=== PATIENT | male | born 1955 | race Caucasian/White ===

== ENCOUNTER 2020-04-29 20:58 | Inpatient (IN) | payer OTHER ==
[~2020-04-29] VITALS: Ht 190.5 cm; Wt 111.2 kg
--- NOTE | 2020-04-29 20:49 | NUR ---
RODRIGO IS A DIRECT ADMIT FROM THE [place]. ARRIVED TO THE FLOOR VIA GURNEY/AMBULANCE. HE IS BEING ADMITTED FOR BILATERAL PNEUMONIA AND COVID-19 POSITIVE. RODRIGO REPORTS THAT HE [place]IVES IN [place] AND GOT TESTED POSITIVE SEVERAL DAYS AGO, SINCE THEN HE HAS BEEN SLEEPING ALL THE TIME, DOES NOT HAVE ANY ENERGY, CHANGE IN TASTE BUDS, SOB JUST STARTED LAST NIGHT, HEADACHE OFF AND ON MILD. DAUGHTER GOT HIM TO COME TO [facility] FOR EVALUATION, SHE WAS VERY CONCERNED THEREFORE [place] WANTED TO ADMIT TO US. RODRIGO IS AOX4, WORKS, IS INDEPENDENT. WELL GROOMED. DOES NOT APPEAR IN ANY DISTRESS, WEARING A MASK. SPEECH IS NORMAL, CLEAR. NO DIFFICULTY SWALLOWING, MOUTH MOIST MEMBRANES, TONSILS NORMAL SIZE. EYES NORMAL APPEARING, PUPILS REACTIVE SIZE 4, REPORTS SINUS CONGSETION, NO TENDERNESS ALONG SINUS TRACK, NO HEARING ISSUES, EARS ARE FREE OF FLUID, LUNG SOUNDS CLEAR IN UPPER LOBES, BASES DIMINISHED, COUGH IS MOIST OCCATIONAL AND PRODUCTIVE OF SMALL BROWN SPUTUM, SATS 96% ON RA, RESP EVEN AND UNLABORED. HR SINUS, NO MURMUR OR GALLOP. ABD ROUND, MILD DISTENTION, STATES IS HIS NORM, NONTENDER, BM TODAY, BT ACTIVE X4, NO NAUSEA. GOOD URINE OUTPUT PER PATIENT, YELLOW, DENIES ODOR OR BURNING. SKIN PWD, NO BRUISING OR RASHES. DR. DAHL IN ROOM TO ASSESS PATIENT, SPOKE TO DAUGHTER OF PATIENT WELL. HE WILL PLACE ORDERS. CALL LIGHT IS IN REACH, WILL GET HIM SOMETHING TO EAT AND DRINK.
[2020-04-29] MEDS ORDERED: METF500 PO (22:13)
[2020-04-29] MEDS ORDERED: Prinivil10 MG (22:14)
[2020-04-29] MEDS ORDERED: TAMS.4ER PO (22:14)
[2020-04-29] MEDS ORDERED: VITAMIN D32000 UNI1 (22:16)
[2020-04-29] MEDS ORDERED: MULTIPLE VITAM1 EACH (22:17)
[2020-04-30 04:57] LABS: Hematocrit 42.7 % (37.0-53.0); Hemoglobin 14.2 g/dL (13.5-17.5); Mean Corpuscular HGB 29.6 pg (26.0-34.0); Mean Corpuscular HGB Conc 33.3 g/dL (31.5-36.5); Mean Corpuscular Volume 89 fL (80-100); Mean Platelet Volume 10.6 fL (9.1-12.4); Platelet Count 97 K/mm3 (150-400); RDW Coefficient Variation 13.1 % (11.7-14.2); RDW Standard Deviation 42.8 fL (35.1-46.3); White Blood Cell Count 29.42 K/mm3 (4.00-11.30)
[2020-04-30 05:18] LABS: Anion Gap 6 mmol/L (6-16); Blood Urea Nitrogen 17 mg/dL (8-24); Bun/Creatinine Ratio 25.3 (12.0-20.0); CO2, Blood 24 mmol/L (21-32); Calcium, Blood 8.2 mg/dL (8.5-10.1); Chloride, Blood 105 mmol/L (98-108); Creatinine, Blood 0.67 mg/dL (0.60-1.20); Glomerular Filtration Rate >60 (60-); Glucose, Blood 171 mg/dL (70-99); Potassium, Blood 4.4 mmol/L (3.5-5.5); Sodium, Blood 135 mmol/L (136-145)
--- NOTE | 2020-04-30 06:01 | NUR ---
SHIFT SUMMARY: RODRIGO WAS A DIRECT ADMIT FROM THE [place]. DAUGHTER IS A DOCTOR IN [place]. TESTED POSTIVE FOR COVID-19 4 DAYS AGO AN OUTPATIENT. SINCE THEN HE HAS BEEN SLEEPING MORE OFTEN, HAS HAD CHANGE IN TASTE, DECREASE IN APPETITE. AND RUNNING A TEMP. HE FINALLY GOT A CHEST XRAY AT THE [place] WHICH SHOWED BILATERAL INFILTRATES. HE IS ALSO SOB. AOX3, INDEPENDENT IN THE ROOM. LUNG SOUNDS CLEAR WITH TIGHT/DIMINISHED BASES. COUGH PRODUCTIVE WITH BROWN SPUTUM SMALL AMOUNTS. SATS 96% ON RA. ON CONTINUOUS BIOX AND WHEN HE SLEPT HE DID DESAT DOWN TO 88%. FEBRILE AT 101 BUT CAME DOWN TO 98 ON HIS OWN THIS AM. MILD HEADACHES OFF AND ON, OCCATIONAL DIZZINESS. SLEPT OFF AND ON. ISOLATION DROPLET/CONTACT IN PLACE. CALL LIGHT IN REACH.
--- NOTE | 2020-04-30 18:24 | NUR ---
SHIFT SUMMARY- PT IS A/O, PLESANT AND COOPERATIVE. HE TOOK A SHOWER THIS SHIFT. HE IS AMBULATING INDEPENDENTLY. HIS OXYGEN SATURATIONS ARE MAINTAINING IN THE LOW 90'S ON ROOM AIR. SPOKE WITH HIS DAUGHTER ON THE PHONE TO UPDATE HER. HE IS RECIEVING IV ANTIVIRALS. HE IS SITTING AT THE EDGE OF THE BED FOR MEALS AND IS TALKATIVE WHEN WE ARE IN THE ROOM. DR. RASHID CALLED AND SPOKE WITH DAUGHTER ON THE PHONE.
--- NOTE | 2020-04-30 21:05 | NUR ---
ASSUMED CARE. RODRIGO REPORTS HE IS FEELING OK. STILL COUGHING UP BROWN SPUTUM SMALL AMOUNTS OCCATIONALLY. DENIES ANY PAIN OR DISCOMFORT. LUNG SOUNDS DIMINISHED IN BASES, CLEAR UPPER. SATS ON CONTINUOUS BIOX >90%. TELE REPORTS SINUS IN THE 60'S. VS WNL. GOOD APPETITE. INDEPENDENT IN THE ROOM. SKIN PWD. MEDS ADMINISTERED. NO OTHER NEEDS NOTED. CALL LIGHT IN REACH.
--- NOTE | 2020-05-01 04:53 | NUR ---
SHIFT SUMMARY: AOX3, INDEPENDENT. LUNG SOUNDS DIMINISHED IN BASES. SPUTUM STILL BROWNISH, SMALL AMOUNTS. COUGH OCCATIONAL. SATS MAINTAINED >90% ON RA. NO SOB NOTED. FEBRILE TONIGHT 102. TYLENOL GIVEN, WILL RECHECK. SLEPT WELL OFF AND ON BETWEEN INTERVENTIONS. NO ACUTE CHANGES TO NOTE. CALL LIGHT IN REACH.
--- NOTE | 2020-05-01 17:02 | NUR ---
SHIFT SUMMARY PT AWAKE AT START OF SHIFT. A&O, PLEASANT AND CO-OP, INDEPENDENT IN RM. PT ADMITTED FOR COVID -19, CURRENTLY IN DROPLET ISO. LUNGS COARSE T/O. PT ON RA. UP TO SHOWER INDEPENDENTLY. DR WHITEHEAD IN TO SEE PT. NEW ORDERS RECEIVED. PT ON SS INSULIN R/T STEROIDS AND NOT TAKING METFORMIN WHILE IN HOSPITAL. PT REQUESTED IH TO HAVE IN RM. DR WHITEHEAD NOTIFIED. PT DENIED FURTHER NEEDS. CALL LT IN REACH.
--- NOTE | 2020-05-01 23:07 | NUR ---
2300 DAUGHTER CALLED FOR UPDATE. DAUGHTER WOULD LIKE TO SPEAK TO PROVIDER AT ANYTIME. PHONE- [phone], . DAUGHTER ASK TO POSSIBLY START PT ON A SPIRIVA TX. WILL CALL HOSPITALIST AND SEE WHAT THEY WISH TO ORDER.
--- NOTE | 2020-05-02 04:38 | NUR ---
AUDIO PRODUCTION ENGINEER SUMMARY PT DENIED ANY PAIN OR SOB HOWEVERTHE PT'S O2 SATS DROPPED TO 88 AND WOULD NOT RISE ABOVE 90 ON RM AIR SO HE WAS PLACED ON 2LNC AND THEY STABALIZED AT 91. PT WAS PLACED ON TELE HIS TELE WAS TAKEN OFF AND NOT REPLACED ON THE PREVIOUS SHIFT FOR UNKNOWN REASONS. PT SLEPT MOST OF THE NIGHT COMFORTABLY W CALL LIGHT IN PLACE.
[2020-05-02 05:16] LABS: Hematocrit 45.4 % (37.0-53.0); Hemoglobin 14.5 g/dL (13.5-17.5); Mean Corpuscular HGB 29.1 pg (26.0-34.0); Mean Corpuscular HGB Conc 31.9 g/dL (31.5-36.5); Mean Corpuscular Volume 91 fL (80-100); Mean Platelet Volume 10.9 fL (9.1-12.4); NRBC ABSOLUTE 0.03 K/mm3 (0.00-0.02); NRBC Auto 0.1 /100 WBC (0.0-0.2); Platelet Count 133 K/mm3 (150-400); RDW Coefficient Variation 13.2 % (11.7-14.2); RDW Standard Deviation 44.4 fL (35.1-46.3); Red Blood Cell Count 4.98 M/mm3 (4.30-5.90); White Blood Cell Count 29.59 K/mm3 (4.00-11.30)
[2020-05-02 05:30] LABS: Anion Gap 8 mmol/L (6-16); Blood Urea Nitrogen 20 mg/dL (8-24); Bun/Creatinine Ratio 28.4 (12.0-20.0); CO2, Blood 22 mmol/L (21-32); Calcium, Blood 8.5 mg/dL (8.5-10.1); Chloride, Blood 108 mmol/L (98-108); Creatinine, Blood 0.71 mg/dL (0.60-1.20); Glomerular Filtration Rate >60 (60-); Glucose, Blood 137 mg/dL (70-99); Potassium, Blood 4.5 mmol/L (3.5-5.5); Sodium, Blood 138 mmol/L (136-145)
[2020-05-02 06:08] LABS: BASOPHILS PERCENT MAN 0 % (0-2); EOSINOPHILS PERCENT MAN 0 % (0-6); LYMPHOCYTES ABSOLUTE MAN 25.44 K/mm3 (0.84-5.20); LYMPHOCYTES PERCENT MAN 86 % (21-46); MONOCYTES ABSOLUTE MAN 0.59 K/mm3 (0.16-1.47); MONOCYTES PERCENT MAN 2 % (4-13); NEUTROPHILS ABSOLUTE MAN 3.55 K/mm3 (1.96-9.15); SEG NEUTROPHILS PERCENT MAN 12 % (41-73); TOTAL CELLS COUNTED 100
--- NOTE | 2020-05-02 17:31 | NUR ---
PATIENT IS ALERT AND ORIENTED AND COOPERATIVE WITH CARE. PATIENT HAS BEEN WEARING 2L O2 VIA NC WITH O2 SATURATIONS OF 92-93%. PATIENT SHOWERED THIS SHIFT INDEPENDENTLY. NO C/O SOB. TELEMETRY SHOWS SINUS BRADYCARDIA AT 54 BPM. NO FEVERS NOTED THIS SHIFT. LUNG SOUNDS ARE COARSE. THE PATIENT WAS UNABLE TO PRODUCE A SPUTUM SAMPLE OF NOW. PATIENT HAS A GOOD APPETITE. WILL CONTINUE TO MONITOR
--- NOTE | 2020-05-03 04:03 | NUR ---
REPAIRER TYPEWRITER SUMMARY PT HAD A MUCH BETTER NIGHT COMPARED TO THE PREVIOUS NIGHT HIS ANXIETY IS MUCH LESS SINCE HE IS NOT REQUIRING SUPPLEMENTAL O2 DURING THIS SHIFT. HIS O2 SATS HAVE REMAINED >92 DURING THE NIGHT ON RM AIR. PT DENIES ANY NEW S/S.
--- NOTE | 2020-05-03 17:00 | NUR ---
SHIFT SUMMARY PT IND IN ROOM T/O DAY. RECIEVED SHOWER THIS SHIFT. LOVENOX [place] ADJUSTED DUE TO WEIGHT LOSS. PT SATING IN THE S T/O SHIFT ON RA. OCCATIONAL COUGH, LITTLE PRODUCTION. PT GIVEN SNACK THIS AFTERNOON. VS REVIEWED. NO OTHER CHANGES IN ASSESSMENT AT THIS TIME. WILL CONTINUE TO MONITOR UNTIL TURNOVER IS COMPLETE.
--- NOTE | 2020-05-04 04:37 | NUR ---
SUMMARY: A/OX4, INDEPENDENT IN ROOM AND CALLS APPROPRIATELY FOR ASSIST. HE REMAINS IN ISO FOR COVID(+). PT HAS BEEN ASYMPTOMATIC OF RESP DISTRESS. HE DENIES SOB, RESPS ARE E/U W/SPO2 WNL. HE HAS O2 PRN AND BEGAN SHIFT ON RA BUT PLACED SELF ON 2L TO MAINTAIN SPO2>90%, CONT BIOX INTACT. PT ADMITS TO A PRODUCTIVE COUGH W/BROWN SPUTUM BUT THIS WASN'T OBSERVED BY STAFF THIS SHIFT. LOVENOX RECIEVED FOR DVT PROPHYLAXIS. PT IS S.PAYTON-NSR AT 50'S-60'S BPM PER TELEMETRY. NO ACUTE CHANGES, VSS/AFEBRILE. POSSIBLE D/C TODAY. WCTM AND REPORT TO DAY RN.
--- NOTE | 2020-05-04 17:10 | NUR ---
SHIFT SUMMARY PT A/0 X4; PLEASANT AND COOPERATIVE WITH CARE. IND IN THE ROOM AND CALLS APPROPRIATELY. IN ISO FOR COVID19. NEGATIVE FOR RESPIRATORY SYMPTOMS DURING THIS SHIFT. ON 2 LITERS O2 VIA NC PRN, BUT HAS NOT NEEDED IT. PT REPORTS O2 DESATURATION DURING THE NIGHT. RECORDED SLEEP OXIMETRY TO BE DONE TONIGHT. ONE DOSE OF REMDESIVIR GIVEN. VSS; WCTM.
--- NOTE | 2020-05-04 23:17 | NUR ---
SLEEP STUDY COMMENCED AT THIS TIME PER RT. PT AWARE THAT INTERRUPTIONS WILL BE LIMITED T/O NOCTE BUT HE KNOWS TO CALL FOR ASSISTANCE PRN. HE'S A/O AND INDEPENDENT IN HIS ROOM W/O ANY S/S RESP DISTRESS.
--- NOTE | 2020-05-05 05:17 | NUR ---
SUMMARY: PT A/OX4, INDEPENDENT IN ROOM AND SPECIFIES NEEDS. PT HAS DENIED PAIN, COMPLAINTS AND RESP DISTRESS THIS SHIFT. HE HAD A SLEEP STUDY TONIGHT W/ INTERRUPTIONS LIMITED. HE REMAINS IN ISOLATION FOR COVID(+). RESPS E/U ON RA, NO APPARENT DESATS OBSERVED W/SPO2 SEEMINGLY >90% WHEN STAFF ROUNDED. NO ACUTE CHANGE, VSS/AFEBRILE. POSSIBLE D/C THIS AM. WCTM AND REPORT TO DAY RN.
[2020-05-05] MEDS ORDERED: ACET325 (15:23)
[2020-05-05] MEDS ORDERED: ACET325 PO (15:24)
[2020-05-05] MEDS ORDERED: ALBU90OI6 INH (15:26)
[2020-05-05] MEDS ORDERED: DECADRON6 MG PO (15:29)
[2020-05-05] MEDS ORDERED: FLUTICASONE-SA1 EA11 INH (15:30)
[2020-05-05] MEDS ORDERED: XARELTO20 MG PO (15:32)
[2020-05-05] MEDS ORDERED: TIOT18 INH (15:33)
--- NOTE | 2020-05-05 16:16 | NUR ---
DISCHARGE SUMMARY PT A/O X4 AND IND IN ROOM. PT HAD RECORDED O2 EVAL LAST NIGHT. ON ROOM AIR DURING THE DAY AND NIGHT. HOME O2 EVAL DONE BY RESPIRATORY THERAPY. NEW MEDICATIONS FAXED TO [facility]. 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
--- NOTE | 2020-05-05 16:50 | NUR ---
SUMMARY/DISCHARGE PT DISCHARGED TO HOME, HOME O2 EVAL DONE, NO O2 NEEDED, MANAGER SCIENTIFIC ATTEMPTED [facility], BUT HAD NOT [facility]ARD BACK FROM THEM, PT ASKED TO HAVE A CAB CALLED, [employer] CALL[facility], PT VERBALIZED UNDERSTANDING OF DISCHARGE INSTRUCTIONS REGARDING MEDS AND APPOINTMENTS, PT WILL MAKE HIS OWN APPOINTMENT WITH [facility], PT TAKEN OUT SAFELY VIA WHEELCHAIR, PT WEARING A MASK
== END 2020-05-05 16:13 | disposition home or self-care (01) | DRG 177 ==
LOC: MEDS 20:58
PROVIDERS: Hospitalist; ADMIT Internal Medicine
PROC: XW033E5 Introduction of Remdesivir Anti-infective into Peripheral Vein, Percutaneous Approach, New Technology Group 5 (ICD-10-PCS; principal; 2020-05-01)
PROC: 3E0333Z Introduction of Anti-inflammatory into Peripheral Vein, Percutaneous Approach (ICD-10-PCS; 2020-05-01)
PROC: XW033E5 Introduction of Remdesivir Anti-infective into Peripheral Vein, Percutaneous Approach, New Technology Group 5 (ICD-10-PCS; 2020-05-02)
PROC: XW033E5 Introduction of Remdesivir Anti-infective into Peripheral Vein, Percutaneous Approach, New Technology Group 5 (ICD-10-PCS; 2020-05-03)
PROC: XW033E5 Introduction of Remdesivir Anti-infective into Peripheral Vein, Percutaneous Approach, New Technology Group 5 (ICD-10-PCS; 2020-05-04)
PROC: XW033E5 Introduction of Remdesivir Anti-infective into Peripheral Vein, Percutaneous Approach, New Technology Group 5 (ICD-10-PCS; 2020-05-05)
DX: U07.1 COVID-19 (principal); J96.01 Acute respiratory failure with hypoxia; C91.10 Chronic lymphocytic leukemia of B-cell type not having achieved remission; E11.9 Type 2 diabetes mellitus without complications; I10 Essential (primary) hypertension; N40.0 Benign prostatic hyperplasia without lower urinary tract symptoms; Z68.31 Body mass index [BMI] 31.0-31.9, adult
CPT/HCPCS: 36415; 71045; 80048; 82728; 82947; 84145; 85025; 85027; 85379; 94667; 94762; 96372; 96374; A9270; A9270-GY; G0378; J1650; J7050